=== PATIENT | female | born 1945 | race Caucasian/White ===

== ENCOUNTER 2020-11-27 03:22 | Inpatient (IN) ==
[2020-11-27] MEDS ORDERED: Ringers Solution, Lactated 500 ML IVC ONE (05:13)
[2020-11-27 05:27] LABS: Adenovirus Not Detected (Not Detect); Coronavirus 229E Not Detected (Not Detect); Coronavirus HKU1 Not Detected (Not Detect); Coronavirus NL63 Not Detected (Not Detect); Coronavirus OC43 Not Detected (Not Detect); SARS-CoV-2 Not Detected (Not Detect)
[2020-11-27 05:28] LABS: Bordetella Pertussis Not Detected (Not Detect); Chlamydophila pneumoniae Not Detected (Not Detect); Human Metapneumovirus Not Detected (Not Detect); Human Rhinovirus/Enterovirus Not Detected (Not Detect); Influenza A Subtype 2009 H1 Not Detected (Not Detect); Influenza B Not Detected (Not Detect); Mycoplasma pneumoniae Not Detected (Not Detect); Parainfluenza Virus 1 Not Detected (Not Detect); Parainfluenza Virus 2 Not Detected (Not Detect); Parainfluenza Virus 3 Not Detected (Not Detect); Parainfluenza Virus 4 Not Detected (Not Detect); Respiratory Syncytial Virus Not Detected (Not Detect)
[2020-11-27] MEDS ORDERED: Isovue-370 500 ML BOTTLE IVP ONE (05:34)
[2020-11-27] MEDS ORDERED: Naloxone 0.4 MG/ML INJ IVP PRN ×2 (06:20→11:58)
[2020-11-27] MEDS ORDERED: *HR* Heparin 5,000 UNIT/ML VIAL IVP ONE (06:26)
[2020-11-27] MEDS ORDERED: *HR* Heparin 5,000 UNIT/ML VIAL IVP PRN ×4 (06:26→11:58)
[2020-11-27] MEDS ORDERED: Heparin 25,000UNIT/250ML 1/2NS 25,000 UNIT/250 ML IV.SOLN IVC SCH (06:30)
[2020-11-27 07:10] LABS: ABG Base Excess 0 mEq/L (-2 to 3); ABG HCO3 24 mEq/L (21-27); ABG Oxygen Saturation 95 % (95-98); ABG PCO2 33 mmHg (35-45); ABG PH 7.46 pH Units (7.32-7.45); ABG PO2 69 mmHg (85-104); ABG TCO2 25 mEq/L (20-26)
[2020-11-27 07:27] LABS: Basophils % 0.4 %; Eosinophils % 0.1 %; Hematocrit 32.9 % (35.3-44.9); Hemoglobin 10.2 g/dL (11.5-15.4); Immature Granulocytes % 0.4 % (0-4); Lymphocytes # 0.7 K/mcL (0.6-4.6); Mean Corpuscular Hemoglobin 32.3 pg (28.0-33.3); Mean Corpuscular Volume 104.1 fL (83.0-100.0); Mean Platelet Volume 9.5 fL (9.4-12.4); Monocytes # 0.7 K/mcL (0.0-1.3); Monocytes % 5.9 %; Platelet Count 258 K/mcL (140-400); Red Blood Count 3.16 M/mcL (3.82-4.97); Red Cell Distribution Width 14.6 % (11.5-14.5); Segmented Neutrophils % 87.2 %; White Blood Count 11.4 K/mcL (4.3-11.1)
[2020-11-27 07:32] LABS: Prothrombin Time 11.7 Seconds (9.4-12.1)
[2020-11-27 08:03] LABS: Activated Partial Thrombo Time 18.4 Seconds (26.0-36.0)
[2020-11-27 08:24] LABS: Alanine Aminotransferase 15 Units/L (7-52); Alkaline Phosphatase 68 Units/L (34-104); Aspartate Amino Transferase 25 Units/L (13-39); BUN/Creatinine Ratio 40 (6-26); Bilirubin,Total 0.6 mg/dL (0.3-1.0); Blood Urea Nitrogen 25 mg/dL (8-23); Carbon Dioxide 28 mEq/L (23-29); Chloride 100 mEq/L (98-107); Globulin 3.1 g/dL (2.4-3.5); Glucose 88 mg/dL (70-105); Osmolality,Calculated 286 (280-300); Phosphorous 2.2 mg/dL (2.7-4.5); Potassium 3.9 mEq/L (3.5-5.1); Sodium 136 mEq/L (136-145); Total Protein 6.1 g/dL (6.4-8.9); eGFR For African Americans > 60 (> 60); eGFR For Non-African Americans > 60 (> 60)
[2020-11-27] MEDS ORDERED: Artificial Tears SOLN 15 ML BOTTLE BOTH EYES PRN ×2 (10:47→11:58)
[2020-11-27] MEDS ORDERED: Ipratropium/Albuterol Neb 3 ML IH PRN (11:58)
[2020-11-27] MEDS ORDERED: Perflutren Lipid Microsphere 1.3 ML in 0.9 % Sodium Chloride 8.7 ML IVP PRN (12:59)
[2020-11-27] MEDS ORDERED: FIBER GTUBE SCH ×2 (15:00→21:00)
[2020-11-27] MEDS ORDERED: [UNRECOGNIZED DRUG - OTHER] GTUBE SCH (15:00)
[2020-11-27] MEDS ORDERED: LACTOSE REDUCED FOOD GTUBE SCH ×2 (15:00→21:00)
[2020-11-27] MEDS: Heparin 25,000UNIT/250ML 1/2NS 25,000 UNIT/250 ML IV.SOLN IVC SCH (15:52)
[2020-11-27] MEDS: Piperacillin/Tazobactam 3.375 GM in 0.9 % Sodium Chloride Mini Bag 100 ML IVPB SCH ×2 (15:54→23:42)
[2020-11-27] MEDS ORDERED: Pantoprazole 40 MG VIAL IVP SCH (18:00)
[2020-11-27] MEDS: Pantoprazole 40 MG VIAL IVP SCH (18:05)
[2020-11-27] MEDS: (Azelastine Hcl 1 DROP) OP SCH (20:42)
[2020-11-27] MEDS: OLANZapine 5 MG TAB.RAPDIS PO SCH (20:55)
[2020-11-27] MEDS ORDERED: [UNRECOGNIZED DRUG - OTHER] GTUBE SCH (21:00)
[2020-11-27] MEDS ORDERED: OLANZapine 5 MG TAB.RAPDIS PO SCH (21:00)
[2020-11-27] MEDS ORDERED: [UNRECOGNIZED DRUG - OTHER] OP SCH (21:00)
[2020-11-28 02:27] LABS: VBG Ionized Calcium 0.97 mmol/L (1.15-1.35)
[2020-11-28 02:29] LABS: Basophils % 0.3 %; Hematocrit 28.9 % (35.3-44.9); Hemoglobin 9.3 g/dL (11.5-15.4); Immature Granulocytes % 0.5 % (0-4); Lymphocytes # 0.5 K/mcL (0.6-4.6); Lymphocytes % 4.7 %; Mean Corpuscular HGB Conc 32.2 g/dL (31.6-35.5); Mean Corpuscular Hemoglobin 33.2 pg (28.0-33.3); Mean Corpuscular Volume 103.2 fL (83.0-100.0); Mean Platelet Volume 9.6 fL (9.4-12.4); Monocytes # 0.5 K/mcL (0.0-1.3); Neutrophils # 8.9 K/mcL (1.6-8.9); Platelet Count 244 K/mcL (140-400); Red Cell Distribution Width 14.8 % (11.5-14.5); Segmented Neutrophils % 89.5 %; White Blood Count 9.9 K/mcL (4.3-11.1)
[2020-11-28 02:46] LABS: Alanine Aminotransferase 12 Units/L (7-52); Albumin 2.8 g/dL (3.5-5.7); Alkaline Phosphatase 61 Units/L (34-104); Aspartate Amino Transferase 20 Units/L (13-39); BUN/Creatinine Ratio 24 (6-26); Bilirubin,Total 0.7 mg/dL (0.3-1.0); Blood Urea Nitrogen 15 mg/dL (8-23); Calcium 7.9 mg/dL (8.6-10.3); Carbon Dioxide 24 mEq/L (23-29); Chloride 103 mEq/L (98-107); Globulin 2.8 g/dL (2.4-3.5); Glucose 105 mg/dL (70-105); Magnesium 1.9 mg/dL (1.6-2.6); Osmolality,Calculated 281 (280-300); Phosphorous 2.1 mg/dL (2.7-4.5); Potassium 3.4 mEq/L (3.5-5.1); Sodium 135 mEq/L (136-145); Total Protein 5.6 g/dL (6.4-8.9); eGFR For African Americans > 60 (> 60); eGFR For Non-African Americans > 60 (> 60)
[2020-11-28 02:47] LABS: Troponin I 0.03 ng/mL (< 0.04)
[2020-11-28 03:17] LABS: Anisocytosis 1+ (Not Present); Platelet Estimate Normal (Normal)
[2020-11-28 03:18] LABS: Toxic Granulation Present (Not Present); Toxic Vacuolation Present (Not Present)
[2020-11-28] MEDS: Pantoprazole 40 MG VIAL IVP SCH ×2 (05:16→16:17)
[2020-11-28] MEDS ORDERED: Potassium Chloride Elixir 20 MEQ/15 ML UDC GTUBE ONE (07:51)
[2020-11-28] MEDS: (Azelastine Hcl 1 DROP) OP SCH ×2 (07:53→19:30)
[2020-11-28 08:21] LABS: Hematocrit 27.4 % (35.3-44.9); Hemoglobin 8.8 g/dL (11.5-15.4)
[2020-11-28] MEDS: Piperacillin/Tazobactam 3.375 GM in 0.9 % Sodium Chloride Mini Bag 100 ML IVPB SCH ×3 (08:49→23:36)
[2020-11-28] MEDS ORDERED: *HR* Propofol 200 MG/20 ML VIAL IVP ONE (11:30)
[2020-11-28] MEDS ORDERED: Lidocaine -MPF 2% 2 ML VIAL ONE (11:30)
[2020-11-28] MEDS ORDERED: Potassium Phosphate 44 MEQ in 0.9 % Sodium Chloride 250 ML IVPB ONE (16:01)
[2020-11-28] MEDS: Heparin 25,000UNIT/250ML 1/2NS 25,000 UNIT/250 ML IV.SOLN IVC SCH (16:19)
[2020-11-28] MEDS: Calcium Gluconate 1gm/50mL 1 GM/50 ML BAG IVPB SCH ×2 (16:27→17:45)
[2020-11-28] MEDS: OLANZapine 5 MG TAB.RAPDIS PO SCH (20:16)
[2020-11-28 20:50] LABS: Hematocrit 27.1 % (35.3-44.9); Hemoglobin 8.6 g/dL (11.5-15.4)
[2020-11-29 03:16] LABS: Basophils % 0.2 %; Eosinophils # 0.1 K/mcL (0.0-0.6); Eosinophils % 0.7 %; Hematocrit 26.1 % (35.3-44.9); Hemoglobin 8.2 g/dL (11.5-15.4); Immature Granulocytes % 0.4 % (0-4); Lymphocytes # 0.7 K/mcL (0.6-4.6); Lymphocytes % 7.8 %; Mean Corpuscular HGB Conc 31.4 g/dL (31.6-35.5); Mean Corpuscular Hemoglobin 32.4 pg (28.0-33.3); Mean Corpuscular Volume 103.2 fL (83.0-100.0); Mean Platelet Volume 9.4 fL (9.4-12.4); Monocytes # 0.6 K/mcL (0.0-1.3); Monocytes % 5.8 %; Platelet Count 250 K/mcL (140-400); Red Blood Count 2.53 M/mcL (3.82-4.97); Segmented Neutrophils % 85.1 %; White Blood Count 9.5 K/mcL (4.3-11.1)
[2020-11-29 03:38] LABS: Alanine Aminotransferase 9 Units/L (7-52); Albumin 2.5 g/dL (3.5-5.7); Albumin/Globulin Ratio 0.9 (1.1-2.2); Alkaline Phosphatase 70 Units/L (34-104); Aspartate Amino Transferase 14 Units/L (13-39); BUN/Creatinine Ratio 28 (6-26); Bilirubin,Total 0.6 mg/dL (0.3-1.0); Blood Urea Nitrogen 16 mg/dL (8-23); Calcium 8.2 mg/dL (8.6-10.3); Carbon Dioxide 26 mEq/L (23-29); Chloride 108 mEq/L (98-107); Globulin 2.9 g/dL (2.4-3.5); Glucose 83 mg/dL (70-105); Magnesium 2.3 mg/dL (1.6-2.6); Osmolality,Calculated 290 (280-300); Phosphorous 2.4 mg/dL (2.7-4.5); Potassium 3.5 mEq/L (3.5-5.1); Sodium 140 mEq/L (136-145); Total Protein 5.4 g/dL (6.4-8.9); eGFR For African Americans > 60 (> 60); eGFR For Non-African Americans > 60 (> 60)
[2020-11-29 04:07] LABS: ABG Base Excess 1 mEq/L (-2 to 3); ABG HCO3 26 mEq/L (21-27); ABG Oxygen Saturation 97 % (95-98); ABG PCO2 43 mmHg (35-45); ABG PO2 87 mmHg (85-104); ABG TCO2 28 mEq/L (20-26)
[2020-11-29 04:09] LABS: Ferritin 326 ng/mL (10-120); Iron < 10 mcg/dL (50-170); Transferrin 127 mg/dL (203-362)
[2020-11-29 04:50] LABS: Folate 22.2 ng/mL (3.0-16.0)
[2020-11-29] MEDS: Pantoprazole 40 MG VIAL IVP SCH ×2 (05:24→17:01)
[2020-11-29 07:47] LABS: Hematocrit 25.8 % (35.3-44.9); Hemoglobin 8.1 g/dL (11.5-15.4)
[2020-11-29] MEDS: (Azelastine Hcl 1 DROP) OP SCH ×2 (08:54→20:04)
[2020-11-29] MEDS: Piperacillin/Tazobactam 3.375 GM in 0.9 % Sodium Chloride Mini Bag 100 ML IVPB SCH ×2 (09:07→17:01)
[2020-11-29] MEDS: Heparin 25,000UNIT/250ML 1/2NS 25,000 UNIT/250 ML IV.SOLN IVC SCH (11:27)
[2020-11-29] MEDS ORDERED: Iron Sucrose Complex 400 MG in 0.9 % Sodium Chloride 250 ML IVPB ONE (13:17)
[2020-11-29 14:28] LABS: Hematocrit 28.9 % (35.3-44.9); Hemoglobin 8.9 g/dL (11.5-15.4)
[2020-11-29] MEDS: Calcium Gluconate 1gm/50mL 1 GM/50 ML BAG IVPB SCH ×2 (15:05→17:40)
[2020-11-29] MEDS: Ipratropium/Albuterol Neb 3 ML IH SCH ×2 (17:07→21:44)
[2020-11-29 17:43] LABS: Bilirubin,Urine Negative (Negative); Blood,Urine Moderate (Negative); Clarity,Urine Clear (Clear); Color,Urine Yellow (Yellow); Glucose,Urine (UA) Normal (Normal); Ketones,Urine 10 mg/dL (Negative); Leukocyte Esterase,Urine Negative (Negative); Mucus,Urine Few per lpf (None-Few); Nitrite,Urine Negative (Negative); Protein,Urine 50 mg/dL (Neg-Trace); RBC,Urine TNTC per hpf (0-3); Specific Gravity,Urine > 1.030 (1.010-1.025); Squamous Epithelial Cell,Urine Few per hpf (None-Few); Urobilinogen,Urine Normal (Normal)
[2020-11-29 19:06] LABS: Hematocrit 27.4 % (35.3-44.9); Hemoglobin 8.6 g/dL (11.5-15.4)
[2020-11-29] MEDS: OLANZapine 5 MG TAB.RAPDIS PO SCH (20:04)
[2020-11-29] MEDS: Chlorhexidine Rinse 15 ML MOUTHWASH MM SCH (20:04)
[2020-11-30] MEDS: Piperacillin/Tazobactam 3.375 GM in 0.9 % Sodium Chloride Mini Bag 100 ML IVPB SCH ×3 (00:06→15:58)
[2020-11-30] MEDS: Heparin 25,000UNIT/250ML 1/2NS 25,000 UNIT/250 ML IV.SOLN IVC SCH (03:45)
[2020-11-30] MEDS: Ipratropium/Albuterol Neb 3 ML IH SCH ×2 (04:05→11:24)
[2020-11-30 04:11] LABS: Basophils % 0.5 %; Eosinophils # 0.1 K/mcL (0.0-0.6); Eosinophils % 1.3 %; Hematocrit 25.6 % (35.3-44.9); Hemoglobin 8.3 g/dL (11.5-15.4); Immature Granulocytes % 0.5 % (0-4); Lymphocytes # 0.7 K/mcL (0.6-4.6); Lymphocytes % 10.9 %; Mean Corpuscular HGB Conc 32.4 g/dL (31.6-35.5); Mean Corpuscular Hemoglobin 33.2 pg (28.0-33.3); Mean Corpuscular Volume 102.4 fL (83.0-100.0); Mean Platelet Volume 9.7 fL (9.4-12.4); Monocytes # 0.5 K/mcL (0.0-1.3); Monocytes % 7.9 %; Neutrophils # 4.9 K/mcL (1.6-8.9); Platelet Count 264 K/mcL (140-400); Red Cell Distribution Width 14.6 % (11.5-14.5); Segmented Neutrophils % 78.9 %; White Blood Count 6.2 K/mcL (4.3-11.1)
[2020-11-30 04:30] LABS: Alanine Aminotransferase 8 Units/L (7-52); Albumin 2.4 g/dL (3.5-5.7); Albumin/Globulin Ratio 0.8 (1.1-2.2); Alkaline Phosphatase 61 Units/L (34-104); Aspartate Amino Transferase 11 Units/L (13-39); BUN/Creatinine Ratio 31 (6-26); Bilirubin,Total 0.4 mg/dL (0.3-1.0); Blood Urea Nitrogen 14 mg/dL (8-23); Calcium 7.9 mg/dL (8.6-10.3); Carbon Dioxide 25 mEq/L (23-29); Chloride 109 mEq/L (98-107); Glucose 109 mg/dL (70-105); Magnesium 1.9 mg/dL (1.6-2.6); Osmolality,Calculated 291 (280-300); Phosphorous 2.6 mg/dL (2.7-4.5); Potassium 3.2 mEq/L (3.5-5.1); Sodium 140 mEq/L (136-145); Total Protein 5.4 g/dL (6.4-8.9); eGFR For African Americans > 60 (> 60); eGFR For Non-African Americans > 60 (> 60)
[2020-11-30] MEDS: Pantoprazole 40 MG VIAL IVP SCH ×2 (06:11→15:57)
[2020-11-30] MEDS ORDERED: Potassium Chloride Elixir 20 MEQ/15 ML UDC GTUBE ONE (07:44)
[2020-11-30] MEDS: (Azelastine Hcl 1 DROP) OP SCH (09:20)
[2020-11-30] MEDS: Chlorhexidine Rinse 15 ML MOUTHWASH MM SCH (10:11)
[2020-11-30 20:03] LABS: Hematocrit 26.8 % (35.3-44.9); Hemoglobin 8.5 g/dL (11.5-15.4)
[2020-11-30] MEDS: OLANZapine 5 MG TAB.RAPDIS PO SCH (21:05)
[2020-12-01] MEDS: Piperacillin/Tazobactam 3.375 GM in 0.9 % Sodium Chloride Mini Bag 100 ML IVPB SCH ×4 (00:05→23:53)
[2020-12-01 02:41] LABS: Basophils % 0.7 %; Eosinophils # 0.1 K/mcL (0.0-0.6); Hematocrit 27.7 % (35.3-44.9); Hemoglobin 8.8 g/dL (11.5-15.4); Immature Granulocytes % 0.7 % (0-4); Lymphocytes # 0.8 K/mcL (0.6-4.6); Lymphocytes % 17.5 %; Mean Corpuscular HGB Conc 31.8 g/dL (31.6-35.5); Mean Corpuscular Hemoglobin 33.5 pg (28.0-33.3); Mean Corpuscular Volume 105.3 fL (83.0-100.0); Mean Platelet Volume 9.6 fL (9.4-12.4); Monocytes # 0.5 K/mcL (0.0-1.3); Monocytes % 11.2 %; Neutrophils # 3.1 K/mcL (1.6-8.9); Platelet Count 286 K/mcL (140-400); Red Blood Count 2.63 M/mcL (3.82-4.97); Red Cell Distribution Width 14.6 % (11.5-14.5); Segmented Neutrophils % 67.9 %; White Blood Count 4.6 K/mcL (4.3-11.1)
[2020-12-01 03:03] LABS: Alanine Aminotransferase 8 Units/L (7-52); Albumin 2.6 g/dL (3.5-5.7); Albumin/Globulin Ratio 0.8 (1.1-2.2); Alkaline Phosphatase 59 Units/L (34-104); Aspartate Amino Transferase 13 Units/L (13-39); BUN/Creatinine Ratio 22 (6-26); Bilirubin,Total 0.4 mg/dL (0.3-1.0); Blood Urea Nitrogen 10 mg/dL (8-23); Calcium 7.9 mg/dL (8.6-10.3); Carbon Dioxide 27 mEq/L (23-29); Chloride 107 mEq/L (98-107); Globulin 3.1 g/dL (2.4-3.5); Glucose 108 mg/dL (70-105); Magnesium 1.7 mg/dL (1.6-2.6); Osmolality,Calculated 290 (280-300); Phosphorous 1.4 mg/dL (2.7-4.5); Potassium 3.5 mEq/L (3.5-5.1); Sodium 140 mEq/L (136-145); Total Protein 5.7 g/dL (6.4-8.9); eGFR For African Americans > 60 (> 60); eGFR For Non-African Americans > 60 (> 60)
[2020-12-01] MEDS: Levothyroxine 25 MCG TABLET GTUBE SCH (06:10)
[2020-12-01] MEDS: Pantoprazole 40 MG VIAL IVP SCH (06:10)
[2020-12-01] MEDS ORDERED: Potassium Phosphate 44 MEQ in 0.9 % Sodium Chloride 250 ML IVPB ONE (07:09)
[2020-12-01 07:33] LABS: Hematocrit 27.3 % (35.3-44.9); Hemoglobin 8.4 g/dL (11.5-15.4)
[2020-12-01] MEDS: Heparin 25,000UNIT/250ML 1/2NS 25,000 UNIT/250 ML IV.SOLN IVC SCH (15:40)
[2020-12-01] MEDS: OLANZapine 5 MG TAB.RAPDIS PO SCH (19:37)
[2020-12-01 20:10] LABS: Hematocrit 28.4 % (35.3-44.9)
[2020-12-02 03:31] LABS: Basophils # 0.1 K/mcL (0.0-0.2); Basophils % 1.2 %; Eosinophils # 0.1 K/mcL (0.0-0.6); Eosinophils % 1.9 %; Hematocrit 29.1 % (35.3-44.9); Immature Granulocytes % 3.2 % (0-4); Lymphocytes % 17.5 %; Mean Corpuscular HGB Conc 30.9 g/dL (31.6-35.5); Mean Corpuscular Volume 103.6 fL (83.0-100.0); Monocytes # 0.7 K/mcL (0.0-1.3); Monocytes % 11.4 %; Neutrophils # 3.7 K/mcL (1.6-8.9); Nucleated Red Blood Cells 0.4 /100 WBC (0); Platelet Count 325 K/mcL (140-400); Red Blood Count 2.81 M/mcL (3.82-4.97); Red Cell Distribution Width 14.6 % (11.5-14.5); Segmented Neutrophils % 64.8 %; White Blood Count 5.7 K/mcL (4.3-11.1)
[2020-12-02 03:46] LABS: BUN/Creatinine Ratio 18 (6-26); Blood Urea Nitrogen 8 mg/dL (8-23); Carbon Dioxide 26 mEq/L (23-29); Chloride 108 mEq/L (98-107); Glucose 114 mg/dL (70-105); Osmolality,Calculated 291 (280-300); Potassium 3.7 mEq/L (3.5-5.1); Sodium 141 mEq/L (136-145); eGFR For African Americans > 60 (> 60); eGFR For Non-African Americans > 60 (> 60)
[2020-12-02] MEDS: Levothyroxine 25 MCG TABLET GTUBE SCH (05:54)
[2020-12-02 07:17] LABS: Magnesium 1.9 mg/dL (1.6-2.6); Phosphorous 1.9 mg/dL (2.7-4.5)
[2020-12-02 07:39] LABS: Hematocrit 28.9 % (35.3-44.9); Hemoglobin 9.1 g/dL (11.5-15.4)
[2020-12-02] MEDS: Piperacillin/Tazobactam 3.375 GM in 0.9 % Sodium Chloride Mini Bag 100 ML IVPB SCH ×2 (09:03→15:15)
[2020-12-02] MEDS: Heparin 25,000UNIT/250ML 1/2NS 25,000 UNIT/250 ML IV.SOLN IVC SCH (12:44)
[2020-12-02] MEDS: OLANZapine 5 MG TAB.RAPDIS PO SCH (20:49)
[2020-12-02] MEDS: Apixaban 5 MG TABLET PO SCH (20:49)
[2020-12-03] MEDS: Piperacillin/Tazobactam 3.375 GM in 0.9 % Sodium Chloride Mini Bag 100 ML IVPB SCH ×4 (00:15→23:37)
[2020-12-03 03:39] LABS: Basophils # 0.1 K/mcL (0.0-0.2); Basophils % 1.2 %; Eosinophils # 0.1 K/mcL (0.0-0.6); Eosinophils % 1.3 %; Hemoglobin 9.2 g/dL (11.5-15.4); Immature Granulocytes % 5.7 % (0-4); Lymphocytes # 1.2 K/mcL (0.6-4.6); Lymphocytes % 17.3 %; Mean Corpuscular HGB Conc 31.7 g/dL (31.6-35.5); Mean Corpuscular Hemoglobin 32.7 pg (28.0-33.3); Mean Corpuscular Volume 103.2 fL (83.0-100.0); Mean Platelet Volume 9.3 fL (9.4-12.4); Monocytes # 0.6 K/mcL (0.0-1.3); Monocytes % 9.2 %; Nucleated Red Blood Cells 0.6 /100 WBC (0); Platelet Count 356 K/mcL (140-400); Red Blood Count 2.81 M/mcL (3.82-4.97); Red Cell Distribution Width 14.7 % (11.5-14.5); Segmented Neutrophils % 65.3 %; White Blood Count 6.8 K/mcL (4.3-11.1)
[2020-12-03 03:42] LABS: Neutrophils # 4.4 K/mcL (1.6-8.9)
[2020-12-03 04:01] LABS: BUN/Creatinine Ratio 22 (6-26); Blood Urea Nitrogen 11 mg/dL (8-23); Carbon Dioxide 27 mEq/L (23-29); Chloride 109 mEq/L (98-107); Glucose 112 mg/dL (70-105); Osmolality,Calculated 292 (280-300); Potassium 3.9 mEq/L (3.5-5.1); Sodium 141 mEq/L (136-145); eGFR For African Americans > 60 (> 60); eGFR For Non-African Americans > 60 (> 60)
[2020-12-03 04:20] LABS: Platelet Estimate Normal (Normal)
[2020-12-03] MEDS: Levothyroxine 25 MCG TABLET GTUBE SCH (06:15)
[2020-12-03] MEDS: Apixaban 5 MG TABLET PO SCH ×2 (07:04→20:12)
[2020-12-03] MEDS: OLANZapine 5 MG TAB.RAPDIS PO SCH (20:12)
[2020-12-04 05:06] LABS: Basophils # 0.1 K/mcL (0.0-0.2); Basophils % 0.8 %; Eosinophils # 0.1 K/mcL (0.0-0.6); Eosinophils % 0.6 %; Hematocrit 29.8 % (35.3-44.9); Hemoglobin 9.3 g/dL (11.5-15.4); Immature Granulocytes % 4.7 % (0-4); Lymphocytes # 1.1 K/mcL (0.6-4.6); Lymphocytes % 12.9 %; Mean Corpuscular HGB Conc 31.2 g/dL (31.6-35.5); Mean Corpuscular Hemoglobin 33.3 pg (28.0-33.3); Mean Corpuscular Volume 106.8 fL (83.0-100.0); Mean Platelet Volume 9.3 fL (9.4-12.4); Monocytes # 0.9 K/mcL (0.0-1.3); Neutrophils # 6.1 K/mcL (1.6-8.9); Platelet Count 423 K/mcL (140-400); Red Blood Count 2.79 M/mcL (3.82-4.97); Red Cell Distribution Width 14.9 % (11.5-14.5); White Blood Count 8.5 K/mcL (4.3-11.1)
[2020-12-04 05:21] LABS: BUN/Creatinine Ratio 19 (6-26); Blood Urea Nitrogen 14 mg/dL (8-23); Calcium 8.2 mg/dL (8.6-10.3); Carbon Dioxide 26 mEq/L (23-29); Chloride 110 mEq/L (98-107); Glucose 110 mg/dL (70-105); Magnesium 2.1 mg/dL (1.6-2.6); Osmolality,Calculated 293 (280-300); Phosphorous 2.5 mg/dL (2.7-4.5); Potassium 3.8 mEq/L (3.5-5.1); Sodium 141 mEq/L (136-145); eGFR For African Americans > 60 (> 60); eGFR For Non-African Americans > 60 (> 60)
[2020-12-04] MEDS: Levothyroxine 25 MCG TABLET GTUBE SCH (06:11)
[2020-12-04] MEDS: Piperacillin/Tazobactam 3.375 GM in 0.9 % Sodium Chloride Mini Bag 100 ML IVPB SCH ×3 (08:18→23:41)
[2020-12-04] MEDS: Apixaban 5 MG TABLET PO SCH ×2 (08:18→20:42)
[2020-12-04] MEDS: OLANZapine 5 MG TAB.RAPDIS PO SCH (20:42)
[2020-12-05 02:42] LABS: Basophils # 0.1 K/mcL (0.0-0.2); Basophils % 0.8 %; Eosinophils % 0.4 %; Hematocrit 31.6 % (35.3-44.9); Hemoglobin 9.9 g/dL (11.5-15.4); Lymphocytes % 12.3 %; Mean Corpuscular HGB Conc 31.3 g/dL (31.6-35.5); Mean Corpuscular Hemoglobin 33.1 pg (28.0-33.3); Mean Corpuscular Volume 105.7 fL (83.0-100.0); Mean Platelet Volume 9.2 fL (9.4-12.4); Monocytes # 0.6 K/mcL (0.0-1.3); Neutrophils # 6.3 K/mcL (1.6-8.9); Platelet Count 483 K/mcL (140-400); Red Blood Count 2.99 M/mcL (3.82-4.97); Red Cell Distribution Width 15.2 % (11.5-14.5); Segmented Neutrophils % 75.5 %; White Blood Count 8.3 K/mcL (4.3-11.1)
[2020-12-05 03:02] LABS: BUN/Creatinine Ratio 19 (6-26); Blood Urea Nitrogen 14 mg/dL (8-23); Calcium 8.6 mg/dL (8.6-10.3); Carbon Dioxide 27 mEq/L (23-29); Chloride 108 mEq/L (98-107); Glucose 127 mg/dL (70-105); Magnesium 2.2 mg/dL (1.6-2.6); Osmolality,Calculated 292 (280-300); Potassium 3.7 mEq/L (3.5-5.1); Sodium 140 mEq/L (136-145); eGFR For African Americans > 60 (> 60); eGFR For Non-African Americans > 60 (> 60)
[2020-12-05] MEDS: Levothyroxine 25 MCG TABLET GTUBE SCH (06:00)
[2020-12-05] MEDS ORDERED: Apixaban 5 MG TABLET GTUBE SCH (09:00)
[2020-12-05 11:37] VITALS: BP 170/81
== END 2020-12-05 13:57 | DRG 871 ==
LOC: CDU → ICNU 06:09 → SUATTDRO 06:20 → 2ANU 12:32
PROVIDERS: ADMIT Internal Medicine; ATTEND Family Medicine

== ENCOUNTER 2021-11-25 15:56 | Inpatient (IN) ==
[2021-11-25] MEDS ORDERED: *HR* Dextrose 50 % in Water (Syg) 50 ML SYRINGE ONE (18:48)
[2021-11-25] MEDS ORDERED: 0.9 % Sodium Chloride 1,000 ML ONE (18:50)
[2021-11-25] MEDS ORDERED: *HR* Dextrose 50 % in Water (Syg) 50 ML SYRINGE IVP ONE (19:17)
[2021-11-25] MEDS ORDERED: Melatonin 3 MG TABLET PO PRN (19:22)
[2021-11-25] MEDS ORDERED: *HR* Promethazine 25 MG/ML VIAL IM PRN (19:22)
[2021-11-25] MEDS ORDERED: Acetaminophen 325 MG TABLET PO PRN (19:22)
[2021-11-25] MEDS ORDERED: Naloxone 0.4 MG/ML INJ IVP PRN (19:22)
[2021-11-25] MEDS ORDERED: D5% in Water 1,000 ML IVC PRN (19:23)
[2021-11-25] MEDS ORDERED: *HR* Dextrose 50 % in Water (Syg) 50 ML SYRINGE IVP PRN (19:23)
[2021-11-25] MEDS ORDERED: Dextrose Gel 15 GM/37.5 ML TUBE PO PRN ×2 (19:23)
[2021-11-25] MEDS: Ampicillin/Sulbactam 3,000 MG in 0.9 % Sodium Chloride Mini Bag 100 ML IVPB SCH (20:26)
[2021-11-25 21:27] LABS: VBG HCO3 21 mEq/L (21-27); VBG PCO2 32 mmHg (41-51); VBG PH 7.41 pH Units (7.32-7.42); VBG PO2 82 mmHg (25-50)
[2021-11-25] MEDS: Lactobacillus 1 EACH CAP.SPRINK PO SCH (21:33)
[2021-11-25 21:52] LABS: Basophils % 0.1 %; Eosinophils % 0.1 %; Hematocrit 31.9 % (35.3-44.9); Hemoglobin 9.8 g/dL (11.5-15.4); Immature Granulocytes % 0.4 % (0-4); Lymphocytes # 0.5 K/mcL (0.6-4.6); Lymphocytes % 4.9 %; Mean Corpuscular HGB Conc 30.7 g/dL (31.6-35.5); Mean Corpuscular Hemoglobin 33.7 pg (28.0-33.3); Mean Corpuscular Volume 109.6 fL (83.0-100.0); Mean Platelet Volume 8.9 fL (9.4-12.4); Monocytes # 0.5 K/mcL (0.0-1.3); Monocytes % 4.9 %; Platelet Count 454 K/mcL (140-400); Red Blood Count 2.91 M/mcL (3.82-4.97); Red Cell Distribution Width 14.8 % (11.5-14.5); Segmented Neutrophils % 89.6 %; White Blood Count 10.1 K/mcL (4.3-11.1)
[2021-11-25 21:55] LABS: Magnesium 2.1 mg/dL (1.6-2.6); Phosphorous 2.1 mg/dL (2.7-4.5)
[2021-11-25 21:56] LABS: Acetaminophen < 10 mcg/mL (10-20); Alanine Aminotransferase 26 Units/L (7-52); Albumin 3.8 g/dL (3.5-5.7); Albumin/Globulin Ratio 1.2 (1.1-2.2); Alkaline Phosphatase 34 Units/L (34-104); Aspartate Amino Transferase 33 Units/L (13-39); BUN/Creatinine Ratio 20 (6-26); Bilirubin,Total 0.5 mg/dL (0.3-1.0); Blood Urea Nitrogen 14 mg/dL (8-23); Calcium 8.7 mg/dL (8.6-10.3); Carbon Dioxide 20 mEq/L (23-29); Chloride 108 mEq/L (98-107); Globulin 3.1 g/dL (2.4-3.5); Glucose 108 mg/dL (70-105); Osmolality,Calculated 289 (280-300); Potassium 3.4 mEq/L (3.5-5.1); Salicylate < 2.5 mg/dL (15.0-30.0); Sodium 139 mEq/L (136-145); Total Protein 6.9 g/dL (6.4-8.9); eGFR For African Americans > 60 (> 60); eGFR For Non-African Americans > 60 (> 60)
[2021-11-25 22:02] LABS: INR 1.5; Prothrombin Time 16.7 Seconds (9.4-12.1)
[2021-11-25 22:20] LABS: Folate 10.9 ng/mL (3.0-16.0)
[2021-11-25] MEDS ORDERED: Cyanocobalamin (B-12) 1,000 MCG/ML VIAL SQ ONE (22:38)
[2021-11-25] MEDS ORDERED: Potassium Phosphate 44 MEQ in 0.9 % Sodium Chloride 250 ML IVPB ONE (22:38)
[2021-11-25] MEDS ORDERED: Isovue-370 500 ML BOTTLE IVP ONE (23:07)
[2021-11-26 00:43] LABS: Basophils % 0.1 %; Eosinophils % 0.5 %; Hematocrit 29.3 % (35.3-44.9); Immature Granulocytes % 0.4 % (0-4); Lymphocytes # 0.6 K/mcL (0.6-4.6); Lymphocytes % 7.1 %; Mean Corpuscular HGB Conc 30.7 g/dL (31.6-35.5); Mean Corpuscular Hemoglobin 33.5 pg (28.0-33.3); Mean Corpuscular Volume 108.9 fL (83.0-100.0); Mean Platelet Volume 8.7 fL (9.4-12.4); Monocytes # 0.4 K/mcL (0.0-1.3); Monocytes % 4.6 %; Platelet Count 416 K/mcL (140-400); Red Blood Count 2.69 M/mcL (3.82-4.97); Segmented Neutrophils % 87.3 %; White Blood Count 8.1 K/mcL (4.3-11.1)
[2021-11-26 00:50] LABS: INR 1.5; Prothrombin Time 17.1 Seconds (9.4-12.1)
[2021-11-26 01:02] LABS: Magnesium 2.1 mg/dL (1.6-2.6); Phosphorous 2.4 mg/dL (2.7-4.5)
[2021-11-26 01:04] LABS: Alanine Aminotransferase 24 Units/L (7-52); Albumin 3.5 g/dL (3.5-5.7); Albumin/Globulin Ratio 1.3 (1.1-2.2); Alkaline Phosphatase 32 Units/L (34-104); Aspartate Amino Transferase 32 Units/L (13-39); BUN/Creatinine Ratio 19 (6-26); Bilirubin,Total 0.5 mg/dL (0.3-1.0); Blood Urea Nitrogen 13 mg/dL (8-23); Calcium 8.3 mg/dL (8.6-10.3); Carbon Dioxide 19 mEq/L (23-29); Chloride 109 mEq/L (98-107); Globulin 2.7 g/dL (2.4-3.5); Glucose 111 mg/dL (70-105); Osmolality,Calculated 285 (280-300); Potassium 3.6 mEq/L (3.5-5.1); Sodium 137 mEq/L (136-145); Total Protein 6.2 g/dL (6.4-8.9); eGFR For African Americans > 60 (> 60); eGFR For Non-African Americans > 60 (> 60)
[2021-11-26] MEDS: Ampicillin/Sulbactam 3,000 MG in 0.9 % Sodium Chloride Mini Bag 100 ML IVPB SCH ×5 (01:07→23:33)
[2021-11-26 01:17] LABS: Thyroid Stimulating Hormone 1.822 mcIU/mL (0.340-5.600)
[2021-11-26] MEDS: D5% in 0.45% NACL 1,000 ML IVC SCH ×3 (07:48→15:06)
[2021-11-26] MEDS ORDERED: Aspirin Enteric Coated 81 MG Tablet PO SCH (09:00)
[2021-11-26] MEDS: Lactobacillus 1 EACH CAP.SPRINK PO SCH (10:17)
[2021-11-26] MEDS: Cyanocobalamin (B-12) 1,000 MCG TABLET GTUBE SCH (10:25)
[2021-11-26] MEDS: Apixaban 5 MG TABLET GTUBE SCH ×2 (10:25→21:22)
[2021-11-26 12:20] LABS: Amphetamine Screen,Urine Negative ng/mL (Cutoff=1000); Barbiturate Screen,Urine Negative ng/mL (Cutoff=200); Benzodiazepines Screen,Urine Negative ng/mL (Cutoff=200); Cannabinoid Screen,Urine Negative ng/mL (Cutoff = 50); Cocaine Screen,Urine Negative ng/mL (Cutoff= 300); Opiate Screen,Urine Negative ng/mL (Cutoff=300); Phencyclidine Screen,Urine Negative ng/mL (Cutoff=25)
[2021-11-26] MEDS ORDERED: Acetaminophen 650 MG RECTAL SUPP RC PRN (18:51)
[2021-11-26] MEDS ORDERED: Vancomycin (wt based) 1,000 MG VIAL IVPB SCH (19:00)
[2021-11-26] MEDS ORDERED: Fenofibrate 54 MG TABLET PO SCH (21:00)
[2021-11-26] MEDS ORDERED: OLANZapine 5 MG TAB.RAPDIS PO SCH (21:00)
[2021-11-26] MEDS: Mirtazapine 15 MG TABLET GTUBE SCH (21:22)
[2021-11-26] MEDS: Lactobacillus 1 EACH CAP.SPRINK GTUBE SCH (21:22)
[2021-11-26] MEDS: Aspirin 81 MG TAB.CHEW GTUBE SCH (21:48)
[2021-11-27] MEDS: Ampicillin/Sulbactam 3,000 MG in 0.9 % Sodium Chloride Mini Bag 100 ML IVPB SCH ×3 (04:49→20:05)
[2021-11-27] MEDS: D5% in 0.45% NACL 1,000 ML IVC SCH (05:27)
[2021-11-27] MEDS: Lactobacillus 1 EACH CAP.SPRINK GTUBE SCH ×2 (07:56→20:06)
[2021-11-27] MEDS: Cyanocobalamin (B-12) 1,000 MCG TABLET GTUBE SCH (07:56)
[2021-11-27] MEDS: Apixaban 5 MG TABLET GTUBE SCH ×2 (07:56→20:06)
[2021-11-27] MEDS: Aspirin 81 MG TAB.CHEW GTUBE SCH (07:57)
[2021-11-27 16:39] LABS: Hematocrit 24.9 % (35.3-44.9); Hemoglobin 7.5 g/dL (11.5-15.4); Mean Corpuscular HGB Conc 30.1 g/dL (31.6-35.5); Mean Corpuscular Volume 109.7 fL (83.0-100.0); Mean Platelet Volume 8.6 fL (9.4-12.4); Platelet Count 336 K/mcL (140-400); Red Blood Count 2.27 M/mcL (3.82-4.97); Red Cell Distribution Width 14.3 % (11.5-14.5); White Blood Count 4.2 K/mcL (4.3-11.1)
[2021-11-27 16:46] LABS: BUN/Creatinine Ratio 16 (6-26); Blood Urea Nitrogen 11 mg/dL (8-23); Carbon Dioxide 23 mEq/L (23-29); Chloride 112 mEq/L (98-107); Glucose 101 mg/dL (70-105); Magnesium 2.1 mg/dL (1.6-2.6); Osmolality,Calculated 290 (280-300); Potassium 3.1 mEq/L (3.5-5.1); Sodium 140 mEq/L (136-145); eGFR For African Americans > 60 (> 60); eGFR For Non-African Americans > 60 (> 60)
[2021-11-27] MEDS: Mirtazapine 15 MG TABLET GTUBE SCH (20:06)
[2021-11-28] MEDS: Ampicillin/Sulbactam 3,000 MG in 0.9 % Sodium Chloride Mini Bag 100 ML IVPB SCH ×4 (00:52→17:46)
[2021-11-28 06:35] LABS: Hematocrit 25.1 % (35.3-44.9); Hemoglobin 7.5 g/dL (11.5-15.4); Mean Corpuscular HGB Conc 29.9 g/dL (31.6-35.5); Mean Corpuscular Hemoglobin 32.5 pg (28.0-33.3); Mean Corpuscular Volume 108.7 fL (83.0-100.0); Mean Platelet Volume 8.9 fL (9.4-12.4); Platelet Count 370 K/mcL (140-400); Red Blood Count 2.31 M/mcL (3.82-4.97); Red Cell Distribution Width 14.4 % (11.5-14.5); White Blood Count 3.8 K/mcL (4.3-11.1)
[2021-11-28 08:21] LABS: Alanine Aminotransferase 17 Units/L (7-52); Albumin 2.9 g/dL (3.5-5.7); Albumin/Globulin Ratio 1.2 (1.1-2.2); Alkaline Phosphatase 30 Units/L (34-104); Aspartate Amino Transferase 18 Units/L (13-39); BUN/Creatinine Ratio 16 (6-26); Bilirubin,Total 0.3 mg/dL (0.3-1.0); Blood Urea Nitrogen 12 mg/dL (8-23); Carbon Dioxide 24 mEq/L (23-29); Chloride 112 mEq/L (98-107); Globulin 2.4 g/dL (2.4-3.5); Glucose 132 mg/dL (70-105); Magnesium 2.1 mg/dL (1.6-2.6); Osmolality,Calculated 294 (280-300); Phosphorous 1.9 mg/dL (2.7-4.5); Potassium 3.3 mEq/L (3.5-5.1); Sodium 141 mEq/L (136-145); Total Protein 5.3 g/dL (6.4-8.9); eGFR For African Americans > 60 (> 60); eGFR For Non-African Americans > 60 (> 60)
[2021-11-28] MEDS: Apixaban 5 MG TABLET GTUBE SCH ×2 (08:24→20:13)
[2021-11-28] MEDS: Aspirin 81 MG TAB.CHEW GTUBE SCH (08:24)
[2021-11-28] MEDS: Lactobacillus 1 EACH CAP.SPRINK GTUBE SCH ×2 (08:24→20:14)
[2021-11-28] MEDS: Cyanocobalamin (B-12) 1,000 MCG TABLET GTUBE SCH (08:24)
[2021-11-28] MEDS ORDERED: Potassium Phosphate 44 MEQ in 0.9 % Sodium Chloride 250 ML IVPB ONE (10:12)
[2021-11-28] MEDS: D5% in 0.45% NACL 1,000 ML IVC SCH ×2 (10:49→14:20)
[2021-11-28 16:30] LABS: Hematocrit 25.6 % (35.3-44.9); Hemoglobin 7.9 g/dL (11.5-15.4); Mean Corpuscular HGB Conc 30.9 g/dL (31.6-35.5); Mean Corpuscular Hemoglobin 33.8 pg (28.0-33.3); Mean Corpuscular Volume 109.4 fL (83.0-100.0); Mean Platelet Volume 8.8 fL (9.4-12.4); Platelet Count 340 K/mcL (140-400); Red Blood Count 2.34 M/mcL (3.82-4.97); Red Cell Distribution Width 14.5 % (11.5-14.5); White Blood Count 5.4 K/mcL (4.3-11.1)
[2021-11-28] MEDS: Mirtazapine 15 MG TABLET GTUBE SCH (20:13)
[2021-11-29] MEDS: Ampicillin/Sulbactam 3,000 MG in 0.9 % Sodium Chloride Mini Bag 100 ML IVPB SCH ×4 (00:47→17:16)
[2021-11-29] MEDS: D5% in 0.45% NACL 1,000 ML IVC SCH ×2 (04:04→21:24)
[2021-11-29 04:45] LABS: Hematocrit 24.5 % (35.3-44.9); Hemoglobin 7.3 g/dL (11.5-15.4); Mean Corpuscular HGB Conc 29.8 g/dL (31.6-35.5); Mean Corpuscular Hemoglobin 32.4 pg (28.0-33.3); Mean Corpuscular Volume 108.9 fL (83.0-100.0); Mean Platelet Volume 8.8 fL (9.4-12.4); Platelet Count 345 K/mcL (140-400); Red Blood Count 2.25 M/mcL (3.82-4.97); Red Cell Distribution Width 14.4 % (11.5-14.5); White Blood Count 3.4 K/mcL (4.3-11.1)
[2021-11-29 05:11] LABS: Alanine Aminotransferase 13 Units/L (7-52); Albumin 2.8 g/dL (3.5-5.7); Albumin/Globulin Ratio 1.2 (1.1-2.2); Alkaline Phosphatase 30 Units/L (34-104); Aspartate Amino Transferase 15 Units/L (13-39); BUN/Creatinine Ratio 23 (6-26); Bilirubin,Total 0.2 mg/dL (0.3-1.0); Blood Urea Nitrogen 14 mg/dL (8-23); Carbon Dioxide 23 mEq/L (23-29); Chloride 113 mEq/L (98-107); Globulin 2.4 g/dL (2.4-3.5); Glucose 102 mg/dL (70-105); Osmolality,Calculated 293 (280-300); Phosphorous 2.4 mg/dL (2.7-4.5); Potassium 3.7 mEq/L (3.5-5.1); Sodium 141 mEq/L (136-145); Total Protein 5.2 g/dL (6.4-8.9); eGFR For African Americans > 60 (> 60); eGFR For Non-African Americans > 60 (> 60)
[2021-11-29] MEDS: Apixaban 5 MG TABLET GTUBE SCH ×2 (09:27→21:22)
[2021-11-29] MEDS: Aspirin 81 MG TAB.CHEW GTUBE SCH (09:27)
[2021-11-29] MEDS: Cyanocobalamin (B-12) 1,000 MCG TABLET GTUBE SCH (09:27)
[2021-11-29] MEDS: Lactobacillus 1 EACH CAP.SPRINK GTUBE SCH ×2 (09:27→21:24)
[2021-11-29] MEDS: Furosemide 20 MG/2 ML VIAL IVP SCH ×2 (12:45→21:35)
[2021-11-29] MEDS: Mirtazapine 15 MG TABLET GTUBE SCH (21:22)
[2021-11-30] MEDS: Ampicillin/Sulbactam 3,000 MG in 0.9 % Sodium Chloride Mini Bag 100 ML IVPB SCH ×2 (06:01→06:15)
[2021-11-30 07:08] LABS: Basophils % 0.2 %; Eosinophils % 0.2 %; Hematocrit 27.4 % (35.3-44.9); Hemoglobin 8.5 g/dL (11.5-15.4); Immature Granulocytes % 0.7 % (0-4); Lymphocytes # 1.3 K/mcL (0.6-4.6); Lymphocytes % 22.7 %; Mean Corpuscular Hemoglobin 33.6 pg (28.0-33.3); Mean Corpuscular Volume 108.3 fL (83.0-100.0); Mean Platelet Volume 8.9 fL (9.4-12.4); Monocytes # 0.6 K/mcL (0.0-1.3); Monocytes % 11.3 %; Neutrophils # 3.7 K/mcL (1.6-8.9); Platelet Count 394 K/mcL (140-400); Red Blood Count 2.53 M/mcL (3.82-4.97); Red Cell Distribution Width 14.1 % (11.5-14.5); Segmented Neutrophils % 64.9 %
[2021-11-30 07:12] LABS: White Blood Count 5.7 K/mcL (4.3-11.1)
[2021-11-30 08:09] LABS: BUN/Creatinine Ratio 22 (6-26); Blood Urea Nitrogen 15 mg/dL (8-23); Calcium 8.3 mg/dL (8.6-10.3); Carbon Dioxide 26 mEq/L (23-29); Chloride 108 mEq/L (98-107); Glucose 96 mg/dL (70-105); Osmolality,Calculated 291 (280-300); Phosphorous 2.3 mg/dL (2.7-4.5); Potassium 3.6 mEq/L (3.5-5.1); Sodium 140 mEq/L (136-145); eGFR For African Americans > 60 (> 60); eGFR For Non-African Americans > 60 (> 60)
[2021-11-30] MEDS: Cyanocobalamin (B-12) 1,000 MCG TABLET GTUBE SCH (09:50)
[2021-11-30] MEDS: Apixaban 5 MG TABLET GTUBE SCH ×2 (09:50→20:08)
[2021-11-30] MEDS: Aspirin 81 MG TAB.CHEW GTUBE SCH (09:50)
[2021-11-30] MEDS: Lactobacillus 1 EACH CAP.SPRINK GTUBE SCH ×2 (09:50→20:07)
[2021-11-30] MEDS: Furosemide 20 MG/2 ML VIAL IVP SCH ×2 (09:50→20:08)
[2021-11-30] MEDS: Piperacillin/Tazobactam 3.375 GM in 0.9 % Sodium Chloride Mini Bag 100 ML IVPB SCH ×2 (12:05→20:07)
[2021-11-30] MEDS: D5% in 0.45% NACL 1,000 ML IVC SCH (16:45)
[2021-11-30] MEDS: Mirtazapine 15 MG TABLET GTUBE SCH (20:07)
[2021-12-01] MEDS: Piperacillin/Tazobactam 3.375 GM in 0.9 % Sodium Chloride Mini Bag 100 ML IVPB SCH ×3 (04:20→18:37)
[2021-12-01 05:06] LABS: Basophils % 0.4 %; Eosinophils % 0.2 %; Hematocrit 26.2 % (35.3-44.9); Hemoglobin 8.2 g/dL (11.5-15.4); Immature Granulocytes % 0.7 % (0-4); Lymphocytes # 1.3 K/mcL (0.6-4.6); Lymphocytes % 23.6 %; Mean Corpuscular HGB Conc 31.3 g/dL (31.6-35.5); Mean Corpuscular Hemoglobin 33.1 pg (28.0-33.3); Mean Corpuscular Volume 105.6 fL (83.0-100.0); Mean Platelet Volume 9.1 fL (9.4-12.4); Monocytes # 0.6 K/mcL (0.0-1.3); Monocytes % 10.3 %; Neutrophils # 3.5 K/mcL (1.6-8.9); Platelet Count 412 K/mcL (140-400); Red Blood Count 2.48 M/mcL (3.82-4.97); Red Cell Distribution Width 13.8 % (11.5-14.5); Segmented Neutrophils % 64.8 %; White Blood Count 5.4 K/mcL (4.3-11.1)
[2021-12-01 05:19] LABS: BUN/Creatinine Ratio 21 (6-26); Blood Urea Nitrogen 18 mg/dL (8-23); Calcium 8.6 mg/dL (8.6-10.3); Carbon Dioxide 27 mEq/L (23-29); Chloride 106 mEq/L (98-107); Glucose 107 mg/dL (70-105); Osmolality,Calculated 288 (280-300); Phosphorous 2.9 mg/dL (2.7-4.5); Potassium 3.5 mEq/L (3.5-5.1); Sodium 138 mEq/L (136-145); eGFR For African Americans > 60 (> 60); eGFR For Non-African Americans > 60 (> 60)
[2021-12-01] MEDS: Furosemide 20 MG/2 ML VIAL IVP SCH ×2 (08:30→20:22)
[2021-12-01] MEDS: Apixaban 5 MG TABLET GTUBE SCH ×2 (08:31→20:21)
[2021-12-01] MEDS: Aspirin 81 MG TAB.CHEW GTUBE SCH (08:31)
[2021-12-01] MEDS: Lactobacillus 1 EACH CAP.SPRINK GTUBE SCH ×2 (08:31→20:21)
[2021-12-01] MEDS: Cyanocobalamin (B-12) 1,000 MCG TABLET GTUBE SCH (08:31)
[2021-12-01] MEDS: D5% in 0.45% NACL 1,000 ML IVC SCH ×2 (12:35)
[2021-12-01] MEDS: Mirtazapine 15 MG TABLET GTUBE SCH (20:22)
[2021-12-02] MEDS: Piperacillin/Tazobactam 3.375 GM in 0.9 % Sodium Chloride Mini Bag 100 ML IVPB SCH ×3 (02:19→17:59)
[2021-12-02 05:48] LABS: Basophils % 0.2 %; Eosinophils % 0.2 %; Hematocrit 27.8 % (35.3-44.9); Hemoglobin 8.6 g/dL (11.5-15.4); Immature Granulocytes % 0.3 % (0-4); Lymphocytes % 18.8 %; Mean Corpuscular HGB Conc 30.9 g/dL (31.6-35.5); Mean Corpuscular Hemoglobin 32.7 pg (28.0-33.3); Mean Corpuscular Volume 105.7 fL (83.0-100.0); Mean Platelet Volume 9.3 fL (9.4-12.4); Platelet Count 450 K/mcL (140-400); Red Blood Count 2.63 M/mcL (3.82-4.97); Red Cell Distribution Width 13.8 % (11.5-14.5); Segmented Neutrophils % 70.5 %; White Blood Count 6.3 K/mcL (4.3-11.1)
[2021-12-02 05:49] LABS: Lymphocytes # 1.2 K/mcL (0.6-4.6); Monocytes # 0.6 K/mcL (0.0-1.3); Neutrophils # 4.4 K/mcL (1.6-8.9)
[2021-12-02 05:55] LABS: BUN/Creatinine Ratio 27 (6-26); Blood Urea Nitrogen 23 mg/dL (8-23); Calcium 8.9 mg/dL (8.6-10.3); Carbon Dioxide 29 mEq/L (23-29); Chloride 103 mEq/L (98-107); Glucose 126 mg/dL (70-105); Magnesium 2.1 mg/dL (1.6-2.6); Osmolality,Calculated 293 (280-300); Phosphorous 3.2 mg/dL (2.7-4.5); Potassium 3.6 mEq/L (3.5-5.1); Sodium 139 mEq/L (136-145); eGFR For African Americans > 60 (> 60); eGFR For Non-African Americans > 60 (> 60)
[2021-12-02] MEDS: Apixaban 5 MG TABLET GTUBE SCH ×2 (08:24→20:11)
[2021-12-02] MEDS: Furosemide 20 MG/2 ML VIAL IVP SCH ×2 (08:24→20:12)
[2021-12-02] MEDS: Cyanocobalamin (B-12) 1,000 MCG TABLET GTUBE SCH (08:24)
[2021-12-02] MEDS: Aspirin 81 MG TAB.CHEW GTUBE SCH (08:24)
[2021-12-02] MEDS: Lactobacillus 1 EACH CAP.SPRINK GTUBE SCH ×2 (08:24→20:12)
[2021-12-02] MEDS: D5% in 0.45% NACL 1,000 ML IVC SCH ×3 (08:28→21:50)
[2021-12-02] MEDS: Mirtazapine 15 MG TABLET GTUBE SCH (20:11)
[2021-12-03] MEDS: Piperacillin/Tazobactam 3.375 GM in 0.9 % Sodium Chloride Mini Bag 100 ML IVPB SCH ×3 (02:40→18:27)
[2021-12-03 05:47] LABS: Basophils % 0.4 %; Eosinophils % 0.4 %; Hematocrit 26.9 % (35.3-44.9); Hemoglobin 8.8 g/dL (11.5-15.4); Immature Granulocytes % 2.3 % (0-4); Lymphocytes # 1.5 K/mcL (0.6-4.6); Mean Corpuscular HGB Conc 32.7 g/dL (31.6-35.5); Mean Corpuscular Hemoglobin 33.2 pg (28.0-33.3); Mean Corpuscular Volume 101.5 fL (83.0-100.0); Monocytes # 0.7 K/mcL (0.0-1.3); Monocytes % 9.5 %; Neutrophils # 4.9 K/mcL (1.6-8.9); Nucleated Red Blood Cells 0.3 /100 WBC (0); Platelet Count 402 K/mcL (140-400); Red Blood Count 2.65 M/mcL (3.82-4.97); Red Cell Distribution Width 13.6 % (11.5-14.5); Segmented Neutrophils % 67.4 %; White Blood Count 7.3 K/mcL (4.3-11.1)
[2021-12-03 06:09] LABS: BUN/Creatinine Ratio 22 (6-26); Blood Urea Nitrogen 16 mg/dL (8-23); Carbon Dioxide 22 mEq/L (23-29); Chloride 105 mEq/L (98-107); Glucose 118 mg/dL (70-105); Magnesium 2.1 mg/dL (1.6-2.6); Osmolality,Calculated 284 (280-300); Phosphorous 2.6 mg/dL (2.7-4.5); Potassium 3.9 mEq/L (3.5-5.1); Sodium 136 mEq/L (136-145); eGFR For African Americans > 60 (> 60); eGFR For Non-African Americans > 60 (> 60)
[2021-12-03] MEDS ORDERED: Cyanocobalamin (B-12) 1,000 MCG/ML VIAL IM ONE (07:50)
[2021-12-03] MEDS: Lactobacillus 1 EACH CAP.SPRINK GTUBE SCH ×2 (08:36→21:14)
[2021-12-03] MEDS: Cyanocobalamin (B-12) 1,000 MCG TABLET GTUBE SCH (08:36)
[2021-12-03] MEDS: Apixaban 5 MG TABLET GTUBE SCH ×2 (08:36→21:14)
[2021-12-03] MEDS: Aspirin 81 MG TAB.CHEW GTUBE SCH (08:36)
[2021-12-03] MEDS: Furosemide 20 MG/2 ML VIAL IVP SCH ×2 (08:37→21:16)
[2021-12-03] MEDS: D5% in 0.45% NACL 1,000 ML IVC SCH (10:50)
[2021-12-03] MEDS: Mirtazapine 15 MG TABLET GTUBE SCH (21:14)
[2021-12-04] MEDS: D5% in 0.45% NACL 1,000 ML IVC SCH ×2 (00:23→14:11)
[2021-12-04 02:35] LABS: Basophils % 0.2 %; Eosinophils % 0.3 %; Hemoglobin 8.5 g/dL (11.5-15.4); Immature Granulocytes % 0.5 % (0-4); Lymphocytes # 1.3 K/mcL (0.6-4.6); Lymphocytes % 20.6 %; Mean Corpuscular HGB Conc 30.4 g/dL (31.6-35.5); Mean Corpuscular Volume 105.3 fL (83.0-100.0); Mean Platelet Volume 9.1 fL (9.4-12.4); Monocytes # 0.8 K/mcL (0.0-1.3); Monocytes % 13.2 %; Platelet Count 501 K/mcL (140-400); Red Blood Count 2.66 M/mcL (3.82-4.97); Segmented Neutrophils % 65.2 %; White Blood Count 6.1 K/mcL (4.3-11.1)
[2021-12-04 02:50] LABS: BUN/Creatinine Ratio 19 (6-26); Blood Urea Nitrogen 14 mg/dL (8-23); Calcium 9.1 mg/dL (8.6-10.3); Carbon Dioxide 27 mEq/L (23-29); Chloride 108 mEq/L (98-107); Glucose 94 mg/dL (70-105); Magnesium 2.2 mg/dL (1.6-2.6); Osmolality,Calculated 278 (280-300); Phosphorous 2.7 mg/dL (2.7-4.5); Potassium 3.2 mEq/L (3.5-5.1); Sodium 134 mEq/L (136-145); eGFR For African Americans > 60 (> 60); eGFR For Non-African Americans > 60 (> 60)
[2021-12-04] MEDS: Piperacillin/Tazobactam 3.375 GM in 0.9 % Sodium Chloride Mini Bag 100 ML IVPB SCH ×3 (03:24→18:24)
[2021-12-04] MEDS ORDERED: Potassium Chloride Elixir 20 MEQ/15 ML UDC PO ONE (08:42)
[2021-12-04] MEDS: Aspirin 81 MG TAB.CHEW GTUBE SCH (08:43)
[2021-12-04] MEDS: Apixaban 5 MG TABLET GTUBE SCH ×2 (08:43→19:56)
[2021-12-04] MEDS: Lactobacillus 1 EACH CAP.SPRINK GTUBE SCH ×2 (08:43→19:54)
[2021-12-04] MEDS: Cyanocobalamin (B-12) 1,000 MCG TABLET GTUBE SCH (08:43)
[2021-12-04] MEDS ORDERED: Ammonia Inhalant AMPUL IH ONE (08:53)
[2021-12-04] MEDS: Mirtazapine 15 MG TABLET GTUBE SCH (19:54)
[2021-12-05] MEDS: D5% in 0.45% NACL 1,000 ML IVC SCH (01:41)
[2021-12-05] MEDS: Piperacillin/Tazobactam 3.375 GM in 0.9 % Sodium Chloride Mini Bag 100 ML IVPB SCH ×2 (02:32→10:33)
[2021-12-05 02:48] LABS: Basophils % 0.3 %; Eosinophils % 0.4 %; Hematocrit 27.1 % (35.3-44.9); Hemoglobin 8.4 g/dL (11.5-15.4); Immature Granulocytes % 0.6 % (0-4); Lymphocytes # 1.3 K/mcL (0.6-4.6); Lymphocytes % 16.4 %; Mean Corpuscular Hemoglobin 32.4 pg (28.0-33.3); Mean Corpuscular Volume 104.6 fL (83.0-100.0); Mean Platelet Volume 9.1 fL (9.4-12.4); Monocytes # 0.7 K/mcL (0.0-1.3); Monocytes % 9.2 %; Neutrophils # 5.6 K/mcL (1.6-8.9); Platelet Count 494 K/mcL (140-400); Red Blood Count 2.59 M/mcL (3.82-4.97); Red Cell Distribution Width 13.7 % (11.5-14.5); Segmented Neutrophils % 73.1 %; White Blood Count 7.7 K/mcL (4.3-11.1)
[2021-12-05 03:06] LABS: BUN/Creatinine Ratio 22 (6-26); Blood Urea Nitrogen 16 mg/dL (8-23); Carbon Dioxide 26 mEq/L (23-29); Chloride 106 mEq/L (98-107); Glucose 125 mg/dL (70-105); Magnesium 2.2 mg/dL (1.6-2.6); Osmolality,Calculated 283 (280-300); Phosphorous 2.6 mg/dL (2.7-4.5); Potassium 3.9 mEq/L (3.5-5.1); Sodium 135 mEq/L (136-145); eGFR For African Americans > 60 (> 60); eGFR For Non-African Americans > 60 (> 60)
[2021-12-05] MEDS: Lactobacillus 1 EACH CAP.SPRINK GTUBE SCH (08:34)
[2021-12-05] MEDS: Aspirin 81 MG TAB.CHEW GTUBE SCH (08:34)
[2021-12-05] MEDS: Apixaban 5 MG TABLET GTUBE SCH (08:34)
[2021-12-05] MEDS: Cyanocobalamin (B-12) 1,000 MCG TABLET GTUBE SCH (08:35)
[2021-12-05 12:06] VITALS: BP 136/84; PULSE 78; TEMP 97.2; O2SAT 98
[2021-12-05] MEDS ORDERED: Cyanocobalamin (B-12) 1,000 MCG/ML VIAL IM ONE (16:04)
[2021-12-05 18:12] LABS: Adenovirus Not Detected (Not Detect); Bordetella Pertussis Not Detected (Not Detect); Chlamydophila pneumoniae Not Detected (Not Detect); Coronavirus 229E Not Detected (Not Detect); Coronavirus HKU1 Not Detected (Not Detect); Coronavirus NL63 Not Detected (Not Detect); Coronavirus OC43 Not Detected (Not Detect); Human Metapneumovirus Not Detected (Not Detect); Human Rhinovirus/Enterovirus Not Detected (Not Detect); Influenza A Subtype 2009 H1 Not Detected (Not Detect); Influenza B Not Detected (Not Detect); Mycoplasma pneumoniae Not Detected (Not Detect); Parainfluenza Virus 1 Not Detected (Not Detect); Parainfluenza Virus 2 Not Detected (Not Detect); Parainfluenza Virus 3 Not Detected (Not Detect); Parainfluenza Virus 4 Not Detected (Not Detect); Respiratory Syncytial Virus Not Detected (Not Detect); SARS-CoV-2 Not Detected (Not Detect)
== END 2021-12-05 19:15 | DRG 871 ==
LOC: 2ANU → SUATTDRO 18:02 → 3NENU 20:31 → 2ANU 12-01 18:01
PROVIDERS: ADMIT Internal Medicine; ATTEND Internal Medicine